=== PATIENT | female | born 1970 | race Caucasian/White ===

== ENCOUNTER 2020-12-07 10:52 | Outpatient (REF) | payer OTHER, SELFPAY ==
--- NOTE | ~2020-12-07 | MM_ITS ---
EXAMINATION: MM SCREENING DIGITAL BREAST TOMOSYNTHESIS, BILATERAL CLINICAL INFORMATION: Screening. Asymptomatic. The lifetime risk of breast cancer based on the Tyrer-Cuzick Model is 10%. COMPARISON: Outside mammography from [facility]: 04/06/2009 (left), 06/27/2006 (bilateral). TECHNIQUE: Digital breast tomosynthesis is performed in both the craniocaudal and mediolateral oblique views along with computer-aided detection (CAD). Synthesized 2D images are generated from the tomosynthesis. FINDINGS: There are scattered areas of fibroglandular density (ACR BI-RADS breast composition Category b). Breast tissue composition borders on heterogeneously dense. There is no interval mass or architectural abnormality. No developing density. The axilla and skin contours are unremarkable. There are some scattered punctate round calcifications breast. There are questionable regional fine calcifications central right breast versus digital processing artifact. Patient will be recalled for additional imaging. MM/MM tomosynthesis screening BI IMPRESSION: 1. Right: Question of punctate fine regional calcifications central right breast versus digital processing artifact on synthesized images. 2. Left: No mammographic evidence of malignancy. ASSESSMENT: BI-RADS 0: Incomplete - Need Additional Imaging Evaluation RECOMMENDATION: 1. Additional views of the right breast (magnification CC, magnification ML). 2. Radiology department staff will contact the patient for additional imaging. This patient's information was entered into a reminder system with a target due date for their next mammogram.
== END 2020-12-07 10:53 | disposition home or self-care (01) ==
LOC: HO.MAMMO 10:52
PROVIDERS: PCP Internal Medicine; Visit Provider Obstetrics & Gynecology
DX: Z12.31 Encounter for screening mammogram for malignant neoplasm of breast (principal)
CPT/HCPCS: 77063; 77067

== ENCOUNTER 2020-12-13 10:20 | Outpatient (REF) | payer OTHER, SELFPAY ==
--- NOTE | ~2020-12-13 | MM_ITS ---
EXAMINATION: MM DIAGNOSTIC DIGITAL MAMMOGRAPHY, RIGHT CLINICAL INFORMATION: Recall from screening for question of regional fine calcifications central right breast versus digital processing artifact on synthesized 2-D images. COMPARISON: Mammography: 12/07/2020, outside mammography 06/27/2006 ([facility]). TECHNIQUE: Digital mammography is performed in the following views: Magnification CC, magnification ML FINDINGS: The breasts are heterogeneously dense, which may obscure small masses (ACR BI-RADS breast composition Category c). The additional magnification views show one year to isolated punctate benign round calcifications central right breast. There are no regional calcifications. Finding on recent synthesized images are consistent with digital processing artifact as suspected. Results are discussed with the patient at time of visit. MM/MM added views RT IMPRESSION: No mammographic evidence of malignancy. ASSESSMENT: BI-RADS 2: Benign RECOMMENDATION: Routine annual mammography screening. This patient's information was entered into a reminder system with a target due date for their next mammogram.
== END 2020-12-13 10:21 | disposition home or self-care (01) ==
LOC: HO.MAMMO 10:20
PROVIDERS: Visit Provider Obstetrics & Gynecology
DX: R92.1 Mammographic calcification found on diagnostic imaging of breast (principal)
CPT/HCPCS: 77065

== ENCOUNTER 2021-01-03 11:19 | Outpatient (REF) | payer OTHER, SELFPAY ==
[2021-01-04 02:51] LABS: CT PCR NOT DETECTED (Not Detect.); NG PCR NOT DETECTED (Not Detect.)
== END 2021-01-03 11:20 | disposition home or self-care (01) ==
LOC: HO.LAB 11:19
PROVIDERS: Visit Provider Obstetrics & Gynecology
DX: Z01.419 Encounter for gynecological examination (general) (routine) without abnormal findings (principal); Z11.3 Encounter for screening for infections with a predominantly sexual mode of transmission
CPT/HCPCS: 87491; 87591

== ENCOUNTER → 2021-01-16 11:17 | Outpatient (BNVA) | payer OTHER, SELFPAY | PROVIDERS: Visit Provider Obstetrics & Gynecology | DX: Z30.430 Encounter for insertion of intrauterine contraceptive device (principal) | CPT/HCPCS: 58300; J7298 ==

== ENCOUNTER 2021-02-14 12:11 | Outpatient (REF) | payer MEDICAID, SELFPAY ==
[2021-02-15 02:14] LABS: CT PCR NOT DETECTED (Not Detect.); NG PCR NOT DETECTED (Not Detect.)
[2021-02-15 09:17] LABS: BV Int Neg Control Negative (Negative); BV Int Pos Control Positive (Positive)
== END 2021-02-14 12:12 | disposition home or self-care (01) ==
LOC: HO.LAB 12:11
PROVIDERS: Visit Provider Obstetrics & Gynecology
DX: Z30.431 Encounter for routine checking of intrauterine contraceptive device (principal); R10.2 Pelvic and perineal pain
CPT/HCPCS: 81025; 87480; 87491; 87510; 87591; 87660

== ENCOUNTER 2022-04-12 14:42 | Outpatient (REF) | payer OTHER, SELFPAY ==
[2022-04-14 22:04] LABS: HPV mRNA E6/E7 rflx Not Detected (Not Detected)
== END 2022-04-12 14:43 | disposition home or self-care (01) ==
LOC: HO.LNP 14:42
PROVIDERS: Visit Provider Advanced Practice Midwife
DX: Z01.419 Encounter for gynecological examination (general) (routine) without abnormal findings (principal); Z11.51 Encounter for screening for human papillomavirus (HPV)
CPT/HCPCS: 87624; 88142

== ENCOUNTER 2022-05-09 09:31 | Outpatient (REF) | payer OTHER, SELFPAY ==
--- NOTE | ~2022-05-09 | MM_ITS ---
EXAMINATION: MM SCREENING DIGITAL BREAST TOMOSYNTHESIS, BILATERAL CLINICAL INFORMATION: Screening. Asymptomatic. The lifetime risk of breast cancer based on the Tyrer-Cuzick Model is 10%. COMPARISON: Mammography: 12/13/2020, 12/07/2020, outside mammography 04/06/2009, 06/27/2006 ([facility]) TECHNIQUE: Digital breast tomosynthesis is performed in both the craniocaudal and mediolateral oblique views along with computer-aided detection (CAD). Synthesized 2D images are generated from the tomosynthesis. FINDINGS: The breasts are heterogeneously dense, which may obscure small masses (ACR BI-RADS breast composition Category c). There are no significant masses, abnormal calcifications, or other abnormalities. Parenchymal pattern is similar to prior studies. There is no developing density or architectural abnormality. The axilla and skin contours are unremarkable. No significant changes. MM/MM tomosynthesis screening BI IMPRESSION: No mammographic evidence of malignancy. ASSESSMENT: BI-RADS 1: Negative RECOMMENDATION: Routine annual mammography screening. This patient's information was entered into a reminder system with a target due date for their next mammogram.
== END 2022-05-09 09:32 | disposition home or self-care (01) ==
LOC: HO.MAMMO 09:31
PROVIDERS: PCP Internal Medicine; Visit Provider Advanced Practice Midwife
DX: Z12.31 Encounter for screening mammogram for malignant neoplasm of breast (principal)
CPT/HCPCS: 77063; 77067

== ENCOUNTER 2023-04-17 09:09 | Outpatient (AMB) | payer OTHER, SELFPAY ==
--- NOTE | 2023-04-17 09:17 | MHC.OFFVIS ---
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 Laboratory Technician Required: No Information Interpreted: clinical only Mainstreaming Facilitator: Mainstreaming Facilitator Present Allergies azithromycin [AZITHROMYCIN] Allergy (Unknown, Verified 04/17/23 09:21) HIVES penicillin V Allergy (Unknown, Verified 04/17/23 09:21) Anaphylaxis Penicillins [PENICILLINS] Allergy (Unknown, Verified 04/17/23 09:21) ANAPHYLAXIS Medication List - Last Reconciled 04/17/23 by Susanne Clark CNM biotin 2,500 mcg PO DAILY cholecalciferol (vitamin D3) 10 mcg PO DAILY epinephrine 0.3 mL IM ONCE PRN levonorgestrel (Mirena) intrauterine Is last menstrual period known: No Post menopausal: Yes Do you need a note to return to daycare/school/sports/work: No HPI 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 She feels she eats well she does have very dry skin and she wonders what that is about. She is seeing her primary in getting worked up for some allergies because she has it can not figure out or causes some tingling in her neck and throat. She does think she needs to get more exercise and is working on that. She will be getting her mammogram sometime in May could she just got a reminder to schedule it . She has absolutely no worries about STDs and declines any testing, [facility] Medical History Anemia Surgical History History of dilatation and curettage H/O knee surgery Tubal ligation status Family History Maternal Aunt Breast CA Social History Alcohol intake: never Patient Tobacco Use Status: Current someday Tobacco user Female Reproductive History Menstrual Age of Menarche: 12 control method: progestin IUCD and permanent sterilization History of abnormal pap smear: No (04/26/22) Physical Exam Vital Signs: Last Vital Signs BP 110/68 04/17/23 09:19 BMI result Body Mass Index 29.1 Const General: healthy appearing, comfortable, no acute distress, well developed and alert Nutritional Appearance: average body habitus Orientation/consciousness: patient oriented x3 Limitations: no limitations HEENT Head: Yes normocephalic Neck Neck: Yes normal visual inspection Thyroid: Thyroid normal Chest Chest palpation & inspection: normal inspection of the chest Breast/axilla inspection: normal inspection of the breasts and normal inspection of the axillae Breast/axilla palpation: normal palpation of the breasts and normal palpation of the axillae Resp Effort & Inspection: normal respiratory effort GI Inspection: Yes normal to inspection, No Abdominal wall edema and No distended Palpation (GI): Soft to palpation and nontender Other: Speculum exam within normal limits vagina pink moist but evident postmenopausal changes as well cervix pink round smooth normal appearing mucus and Mirena strings uterus is small midposition mobile nontender good tone with Kegel adnexa not enlarged nontender. General: Yes bladder normal to palpation External Female Exam: normal external appearance and normal appearance of the urethra Speculum Exam - Vagina: normal appearance of the vagina, normal palpation and normal vaginal discharge Speculum Exam - Cervix: normal appearance of the cervix (With Mirena string present approximately 2cms), normal palpation and nontender Bimanual exam- vagina & uterus: normal bimanual exam, normal palpation, uterine size normal, bladder normal to palpation, consistency normal, normal palpation, uterine mobility normal, uterine shape normal, No Cervical tenderness present, non-tender and no cervical motion tenderness Bimanual Exam- Adnexa, other: normal adnexae, no masses, normal and No adnexal tenderness Neuro General: patient oriented x3 Results Reviewed Results Reviewed: Name: Magda Ruiz Age/Sex: 51/F Attending: Susanne Clark CNM : 1970 Submitted by: Susanne Clark CNM Copies to: MR #: [id number] Status: DEP REF Collected: 04/12/22 Location: [facility] Received: 04/13/22 Interpretation Satisfactory for evaluation. Negative for intraepithelial lesion or malignancy. HPV mRNA E6/E7: NOT DETECTED This assay detects E6/E7 viral messenger RNA (mRNA) from 14 high-risk HPV types (16, 18, 31, 33, 35, 39, 45, 51, 52, 56, 58, 59, 66, 68) HPV testing performed by [facility], [place], [place]. See reference laboratory portion of the EMR for entire report. Clinical Information LMP: No menses Previous PAP test: 10/27/18, WNL Material Received ThinPrep-Cervical Electronically Signed By: Miranda Ch 04/30/22 1405 The Pap Test is a screening procedure with the inherent possibility of both false negative and false positive results. Results should be interpreted in the context of historic and current clinical findings. Reliability of the Pap Test is enhanced by performing the test on a regular repetitive basis. Patient: Magda Ruiz Age/Sex: 51/F MR#: [id number] Page 1 of 1 Assessment & Plan Assessment & Plan (1) Cervical cancer screening: Comment: 04 12 22 Pap is negative with negative HPV. Code(s): Z12.4 - Encounter for screening for malignant neoplasm of cervix (2) Perimenopausal symptoms: Code(s): N95.1 - Menopausal and female climacteric states (3) Well woman exam: Code(s): Z01.419 - Encounter for gynecological examination (general) (routine) without abnormal findings Plan -----Discussed in this visit the following: healthy balanced diet, regular and consistent exercise, getting recommended health screens, doing the best she can for her particular health concerns, kegel exercises, pap smear screening and followup recommendations, mammography screening and SBE, normal changes in cycles in her life stage--- .---Discussed normal changes that happen premenapausally, perimenapausally, and postmenopausally, and ways to handle them. Discussed the normal variation, and the range of experiences that women experience. Discussed nutrition, health, need for exercise, both weight-bearing and aerobic. Also discussed the normal changes that happen with vaginal mucosal thinning and sensitivity, and simple more natural ways of handling these challenges. Also discussed the Mirena IUD she was wondering how she will not actually know when she is menopause. She feels her hot flashes are blessing when she gets them because of her cold office environment. Discussed that she can leave the Mirena in for as long as it is useful life and so long as it is not giving her any problems if at some point she wanted to explore removing it that would be an option and then at some she could check the fsh level but she does not want to risk bleeding again. Coding Level of Care Code Est Pt Prev Care 40-64y(06312) Diagnoses Cervical cancer screening Z12.4 Perimenopausal symptoms N95.1 Well woman exam Z01.419
[2023-04-17 09:19] VITALS: BP 110/68; BMI 29.1
== END 2023-04-17 10:04 | disposition home or self-care (01) ==
PROVIDERS: Visit Provider Advanced Practice Midwife
DX: Z01.419 Encounter for gynecological examination (general) (routine) without abnormal findings (principal); N95.1 Menopausal and female climacteric states
CPT/HCPCS: 99396

== ENCOUNTER → 2023-04-17 09:09 | Outpatient (BNVA) | payer OTHER, SELFPAY | PROVIDERS: Visit Provider Advanced Practice Midwife ==

== ENCOUNTER 2023-06-13 12:03 | Outpatient (REF) | payer OTHER, SELFPAY ==
--- NOTE | ~2023-06-13 | MM_ITS ---
EXAMINATION: MM SCREENING DIGITAL BREAST TOMOSYNTHESIS, BILATERAL CLINICAL INFORMATION: Screening. Asymptomatic. COMPARISON: Mammography: This study is compared with prior exams dating back to 2020. TECHNIQUE: Digital breast tomosynthesis is performed in both the craniocaudal and mediolateral oblique views along with computer-aided detection (CAD). Synthesized 2D images are generated from the tomosynthesis. FINDINGS: The breasts are heterogeneously dense, which may obscure small masses (ACR BI-RADS breast composition Category c). There are no significant masses, abnormal calcifications, or other abnormalities. MM/MM tomosynthesis screening BI IMPRESSION: No mammographic evidence of malignancy. ASSESSMENT: BI-RADS BI-RADS 1 - Negative RECOMMENDATION: Routine annual mammography screening. 1 year F/U This examination should not preclude the clinical evaluation of a suspicious palpable abnormality. This patient's information was entered into a reminder system with a target due date for their next mammogram.
== END 2023-06-13 12:04 | disposition home or self-care (01) ==
LOC: HO.MAMMO 12:03
PROVIDERS: PCP Internal Medicine; Visit Provider Internal Medicine
DX: Z12.31 Encounter for screening mammogram for malignant neoplasm of breast (principal)
CPT/HCPCS: 77063; 77067

== ENCOUNTER → 2023-06-13 12:15 | Outpatient (BNV) | payer OTHER, SELFPAY | PROVIDERS: PCP Internal Medicine; Visit Provider Radiology Diagnostic Radiology | DX: Z12.31 Encounter for screening mammogram for malignant neoplasm of breast (principal) | CPT/HCPCS: 77063; 77067 ==

== ENCOUNTER 2024-05-15 10:12 | Outpatient (AMB) | payer OTHER, SELFPAY ==
[2024-05-15 10:18] VITALS: BP 112/70; BMI 25.7
--- NOTE | 2024-05-15 10:18 | MHC.OFFVIS ---
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 Wastewater Technician Required: No Information Interpreted: clinical only Microbiology Technologist: Microbiology Technologist Present Allergies azithromycin [AZITHROMYCIN] Allergy (Unknown, Verified 05/15/24 10:18) HIVES penicillin V Allergy (Unknown, Verified 05/15/24 10:18) Anaphylaxis Penicillins [PENICILLINS] Allergy (Unknown, Verified 05/15/24 10:18) ANAPHYLAXIS Medication List - Last Reconciled 05/15/24 by Susanne Clark CNM biotin 2,500 mcg PO DAILY cholecalciferol (vitamin D3) 10 mcg PO DAILY epinephrine 0.3 mL IM ONCE PRN levonorgestrel (Mirena) intrauterine Is last menstrual period known: No (iud) HPI HPI 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 Her health is pretty good she has a primary care provider in [place] she is monitoring her B12 and she just found out she has a small hiatal hernia but it is not worrisome. She has no worries whatsoever about STIs her last Pap smear was negative in 2021 and she is not having any issues at all with the Mirena and is very happy with it. [facility] Medical History Anemia Surgical History History of dilatation and curettage H/O knee surgery Tubal ligation status Family History Maternal Aunt Breast CA Social History Alcohol intake: never Patient Tobacco Use Status: Current someday Tobacco user Female Reproductive History Menstrual Age of Menarche: 12 control method: progestin IUCD Date of last pap smear: 04/12/22 (neg.2019 WNL) History of abnormal pap smear: No Date of Mammogram: 06/13/23 (neg.) Physical Exam Vital Signs: Last Vital Signs BP 112/70 05/15/24 10:18 BMI result Body Mass Index 25.7 Const General: healthy appearing, comfortable, no acute distress, well developed and alert Nutritional Appearance: average body habitus Orientation/consciousness: patient oriented x3 Limitations: no limitations HEENT Head: Yes normocephalic Neck Neck: Yes normal visual inspection Chest Chest palpation & inspection: normal inspection of the chest Breast/axilla inspection: normal inspection of the breasts and normal inspection of the axillae Breast/axilla palpation: normal palpation of the breasts and normal palpation of the axillae Resp Effort & Inspection: normal respiratory effort GI Inspection: Yes normal to inspection, No Abdominal wall edema and No distended Palpation (GI): Soft to palpation and nontender Other: Vagina is pink and moist normal appearing whitish mucus cervix multiparous pink smooth with Mirena string easily visible uterus small anteverted to midposition mobile nontender adnexa nontender good tone with Kegel General: Yes bladder normal to palpation External Female Exam: normal external appearance and normal appearance of the urethra Speculum Exam - Vagina: normal appearance of the vagina, normal palpation and normal vaginal discharge Speculum Exam - Cervix: normal appearance of the cervix, normal palpation and nontender Bimanual exam- vagina & uterus: normal bimanual exam, normal palpation, uterine size normal, bladder normal to palpation, consistency normal, normal palpation, uterine mobility normal, uterine shape normal, No Cervical tenderness present, non-tender and no cervical motion tenderness Bimanual Exam- Adnexa, other: normal adnexae, no masses, normal and No adnexal tenderness Neuro General: patient oriented x3 Results Reviewed Results Reviewed: Name: Magda Ruiz Age/Sex: 51/F Attending: Susanne Clark CNM : 1970 Submitted by: Susanne Clark CNM Copies to: MR #: [id number] Status: DEP REF Collected: 04/12/22 Location: [facility] Received: 04/13/22 Interpretation Satisfactory for evaluation. Negative for intraepithelial lesion or malignancy. HPV mRNA E6/E7: NOT DETECTED This assay detects E6/E7 viral messenger RNA (mRNA) from 14 high-risk HPV types (16, 18, 31, 33, 35, 39, 45, 51, 52, 56, 58, 59, 66, 68) HPV testing performed by [facility], [place], [place]. See reference laboratory portion of the EMR for entire report. Clinical Information LMP: No menses Previous PAP test: 10/27/18, WNL Material Received ThinPrep-Cervical Electronically Signed By: Miranda Ch 04/30/22 9918 The Pap Test is a screening procedure with the inherent possibility of both false negative and false positive results. Results should be interpreted in the context of historic and current clinical findings. Reliability of the Pap Test is enhanced by performing the test on a regular repetitive basis. Patient: Magda Ruiz Age/Sex: 51/F MR#: [id number] Page 1 of 1 Assessment & Plan Assessment & Plan (1) Well woman exam: Code(s): Z01.419 - Encounter for gynecological examination (general) (routine) without abnormal findings Category: Medical (2) IUD check up: Code(s): Z30.431 - Encounter for routine checking of intrauterine contraceptive device Category: Medical (3) Perimenopausal symptoms: Code(s): N95.1 - Menopausal and female climacteric states Category: Medical (4) Cervical cancer screening: Comment: 04 12 22 Pap is negative with negative HPV. Code(s): Z12.4 - Encounter for screening for malignant neoplasm of cervix Category: Medical Plan -----Discussed in this visit the following: healthy balanced diet, regular and consistent exercise, getting recommended health screens, doing the best she can for her particular health concerns, kegel exercises, pap smear screening and followup recommendations, mammography screening and SBE, normal changes in cycles in her life stage--- . Reviewed her overall health and her contentment with the Mirena and divina menopausal symptoms. She unfortunately was let go from her job, so we discussed the challenges of [employer]. she was very good at her job. Suggested drinking more water and daily use of moisturizer immediately after showering to seal in moisture in her skin. She is up-to-date on her mammograms and everything else. Coding Level of Care Code Est Pt Prev Care 40-64y(92026) Diagnoses Well woman exam Z01.419 IUD check up Z30.431 Perimenopausal symptoms N95.1 Cervical cancer screening Z12.4
== END 2024-05-15 10:37 | disposition home or self-care (01) ==
PROVIDERS: PCP Internal Medicine; Visit Provider Advanced Practice Midwife
DX: Z01.419 Encounter for gynecological examination (general) (routine) without abnormal findings (principal); N95.1 Menopausal and female climacteric states
CPT/HCPCS: 99396; 99459

== ENCOUNTER → 2024-05-15 10:12 | Outpatient (BNVA) | payer OTHER, SELFPAY | PROVIDERS: PCP Internal Medicine; Visit Provider Advanced Practice Midwife ==